=== PATIENT | female | born 1970 ===

== ENCOUNTER 2022-03-22 09:32 | Day surgery (SDC) | payer OTHER ==
[~2022-03-22] VITALS: Ht 157.5 cm; Wt 72.6 kg
[~2022-03-22 09:32] MED LIST: ZYRTEC10 M3 PO
== END 2022-03-22 17:35 | disposition home or self-care (01) ==
LOC: CIR.AMB 09:32
PROVIDERS: ATTEND Specialist
DX: N72 Inflammatory disease of cervix uteri (principal); N85.8 Other specified noninflammatory disorders of uterus; J45.909 Unspecified asthma, uncomplicated; K21.9 Gastro-esophageal reflux disease without esophagitis; Z20.822 Contact with and (suspected) exposure to COVID-19